=== PATIENT | female | born 1990 ===

== ENCOUNTER 2020-05-06 20:00 | Emergency (ER) | payer MEDICAID ==
--- NOTE | 2020-05-06 20:13 | Emergency Department Report ---
Blank Doc - Documentation Documentation: 29-year-old female that presents with pelvic pain, n/v and headache. HX of ec topic . Denies any vaginal bleeding. This initial assessment/diagnostic orders/clinical plan/treatment(s) is/are subject to change based on patient's health status, clinical progression and re- assessment by fellow clinical providers in the ED. Further treatment and workup at subsequent clinical providers discretion. Patient/guardians urged not to elope from the ED as their condition may be serious if not clinically assessed and managed. Initial orders include: 1- Patient sent to [facility] for further evaluation and treatment 2- labs 3- UA 4- US OB
[2020-05-06] MEDS ORDERED: METOCLOPRAMIDE 10 MG/2 ML INJ IV ONE (20:35)
[2020-05-06] MEDS ORDERED: diphenhydrAMINE 50 MG/ML VIAL IV PRN (20:35)
[2020-05-06] MEDS ORDERED: ACETAMINOPHEN 500 MG TAB PO ONE (20:35)
[2020-05-06 20:41] LABS: Basophils % (Auto) 0.4 % (0.0-1.8); Eosinophils # (Auto) 0.3 K/mm3 (0.0-0.4); Hematocrit 35.6 % (30.3-42.9); Hemoglobin 12.2 gm/dl (10.1-14.3); Lymphocytes # (Auto) 2.1 K/mm3 (1.2-5.4); Lymphocytes % (Auto) 21.5 % (13.4-35.0); Mean Corpuscular HGB Conc 34 % (30-34); Mean Corpuscular Volume 85 fl (79-97); Monocytes # (Auto) 0.5 K/mm3 (0.0-0.8); Monocytes % (Auto) 5.4 % (0.0-7.3); Platelet Count 270 K/mm3 (140-440); Red Blood Count 4.19 M/mm3 (3.65-5.03)
[2020-05-06 20:58] LABS: Bilirubin,Urine NEG (Negative); Blood,Urine NEG (Negative); Color,Urine Colorless (Yellow); Protein,Urine <15 mg/dL mg/dL (Negative); Urobilinogen,Urine < 2.0 mg/dL (<2.0)
[2020-05-06 21:01] LABS: BUN/Creatinine Ratio 18; Blood Urea Nitrogen 9 mg/dL (7-17); Calcium 9.5 mg/dL (8.4-10.2); Hemolysis Index 6
[2020-05-06 21:05] LABS: Alanine Aminotransferase 15 units/L (7-56); Albumin 4.2 g/dL (3.9-5)
[2020-05-06 21:07] LABS: Bilirubin,Direct < 0.2 mg/dL (0-0.2)
--- NOTE | 2020-05-06 21:32 | Emergency Department Report ---
ED Abdominal Pain HPI - General Chief Complaint: Headache Stated Complaint: 8WEEKS PREG,HEADACHE Time Seen by Provider: 05/06/20 20:12 Source: patient Mode of arrival: Ambulatory Limitations: No Limitations - History of Present Illness Initial Comments: Patient is a A0 29-year-old female who is approximately 8 weeks gestation and who presents to the ED with complaint of acute onset suprapubic abdominal pain with nausea and vomiting and persistent headache for the last 2 days. Patient states that she has been taking Tylenol with no relief. Patient states that the nausea and vomiting has worsened in the last 12 hours and she suspected that the nausea and vomiting was from her state. Patient denies dizziness, syncope, fever, chills, cough, sore throat, nasal and sinus congestion, diarrhea, vaginal bleeding, vaginal discharge, dysuria, urinary frequency and urgency, low back pain or chest pain and shortness of breath. MD Complaint: abdominal pain, other (Headache, nausea and vomiting) -: Sudden, days(s) (2) Location: suprapubic Radiation: suprapubic Migration to: no migration Severity: severe Severity scale (0 -10): 8 Quality: aching, sharp Consistency: constant Improves With: nothing Worsens With: nothing Associated Symptoms: denies other symptoms, nausea, vomiting, anorexia. denies: diarrhea, fever, chills, constipation, dysuria, hematemesis, hematochezia, melena, hematuria - Related Data LMP Date: 02/25/20 Previous Rx's Medication Instructions Recorded Last Taken Type Acetaminophen [Tylenol] 500 mg PO Q6HR PRN #30 tablet 05/06/20 Unknown Rx Promethazine [Phenergan] 25 mg PO Q6HR PRN #30 tab 05/06/20 Unknown Rx Promethazine [Phenergan] 25 mg NE Q6HR PRN #15 supp.rect 05/06/20 Unknown Rx ED Review of Systems ROS: Stated complaint: 8WEEKS PREG,HEADACHE Other details as noted in HPI Constitutional: denies: chills, fever Eyes: denies: eye pain, eye discharge, vision change ENT: denies: ear pain, throat pain Respiratory: denies: cough, shortness of breath, wheezing Cardiovascular: denies: chest pain, palpitations Endocrine: no symptoms reported Gastrointestinal: abdominal pain (Suprapubic), nausea, vomiting. denies: diarrhea Genitourinary: denies: urgency, dysuria, discharge Musculoskeletal: denies: back pain, joint swelling, arthralgia Skin: denies: rash, lesions Neurological: headache. denies: weakness, paresthesias Psychiatric: denies: anxiety, depression Hematological/Lymphatic: denies: easy bleeding, easy bruising ED Past Medical Hx - Past Medical History Previous Medical History?: No - Surgical History Past Surgical History?: Yes Additional Surgical History: c-sec X 3 - Social History Smoking Status: Never Smoker Substance Use Type: None - Medications Home Medications: Home Medications Medication Instructions Recorded Confirmed Last Taken Type Acetaminophen [Tylenol] 500 mg PO Q6HR PRN #30 tablet 05/06/20 Unknown Rx Promethazine [Phenergan] 25 mg PO Q6HR PRN #30 tab 05/06/20 Unknown Rx Promethazine [Phenergan] 25 mg NE Q6HR PRN #15 supp.rect 05/06/20 Unknown Rx ED Physical Exam - General Limitations: No Limitations General appearance: alert, in no apparent distress - Head Head exam: Present: atraumatic, normocephalic, normal inspection - Eye Eye exam: Present: normal appearance, PERRL, EOMI Pupils: Present: normal accommodation - ENT ENT exam: Present: normal exam, normal orophraynx, mucous membranes moist, TM's normal bilaterally, normal external ear exam - Neck Neck exam: Present: normal inspection, full ROM. Absent: tenderness - Respiratory Respiratory exam: Present: normal lung sounds bilaterally. Absent: respiratory distress, wheezes, rales, rhonchi, chest wall tenderness, accessory muscle use, decreased breath sounds, prolonged expiratory - Cardiovascular Cardiovascular Exam: Present: regular rate, normal rhythm, normal heart sounds. Absent: systolic murmur, diastolic murmur, rubs, gallop - GI/Abdominal GI/Abdominal exam: Present: soft, tenderness (Palpable moderate suprapubic tenderness), normal bowel sounds. Absent: guarding, rebound, hyperactive bowel sounds, hypoactive bowel sounds - Extremities Exam Extremities exam: Present: normal inspection, full ROM, normal capillary refill - Back Exam Back exam: Present: normal inspection, full ROM. Absent: tenderness, CVA t enderness (R), muscle spasm, paraspinal tenderness, vertebral tenderness - Neurological Exam Neurological exam: Present: alert, oriented X3, CN II-XII intact, normal gait, reflexes normal - Psychiatric Psychiatric exam: Present: normal affect, normal mood - Skin Skin exam: Present: warm, dry, intact, normal color. Absent: rash ED Course Vital Signs 05/06/20 20:04 Temperature 98.3 F Pulse Rate 87 Respiratory 18 Rate Blood Pressure 149/79 O2 Sat by Pulse 100 Oximetry ED Medical Decision Making - Lab Data Result diagrams: 05/06/20 20:15 05/06/20 20:15 - Radiology Data Radiology results: report reviewed, image reviewed Findings [facility] [address] [place] [address] Ultrasound Report Signed Patient: SABAS CANTU MR#: [id number] : 1990 Acct:[id number] Age/Sex: 29 / F ADM Date: 05/06/20 Loc: ED Attending Dr: Ordering Physician: DIOMEDES CLOUD NP Date of Service: 05/06/20 Procedure(s): US OB <= 14 weeks fetus Accession Number(s): [id number] cc: DIOMEDES CLOUD NP ULTRASOUND OBSTETRIC Indication: pelvic pain, prior history of ectopic Findings: There is a single, viable intrauterine . Yolk sac and pole are noted. Need[place]-rump length = 1.61 cm = 8 weeks, 0 day(s). heart rate is 167 beats per minute. The right ovary is surgically absent. The left ovary is normal in appearance measuring 3.3 cm in length. There is minimal free fluid. Impression: Single, viable intrauterine with estimated sonographic age of 8 weeks, 0 day(s). Signer Name: Tre Dumas MD Signed: 05/06/2020 9:25 PM Workstation Name: [id number] Transcribed By: SS Dictated By: Tre Dumas MD Electronically Authenticated By: Tre Dumas MD Signed Date/Time: 05/06/202124 DD/ 23 TD/TT: - Medical Decision Making This is a A0 29-year-old female who is approximately 8 weeks gestation and who presents to the ED with complaint of acute onset suprapubic abdominal pain with nausea and vomiting and persistent headache for the last 2 days. Patient states that she has been taking Tylenol with no relief. Patient states that the nausea and vomiting has worsened in the last 12 hours and she suspected that the nausea and vomiting was from her state. In the ED, patient is alert and oriented x3 and is not in distress with normal vital signs. Patient was treated for pain in the ED also received antiemetics Reglan and Benadryl IV. Lab test results were reviewed and showed hCG quant of [id number] and hyperglycemia 138 mg/dL. The rest of the lab test results are nonactionable including urinalysis. Transvaginal ultrasound showed a single, viable intrauterine with estimated sonographic age of 8 weeks, 0 day(s), and with a heart rate of 167 bpm. On reevaluation, patient's headache has resolved and patient has not had any nausea or vomiting as these symptoms have also resolved with medications. Patient will discharge home on medications and advised to maintain a complete pelvic rest with no strenuous or physical activities, and to follow-up with the [facility] physician in 2 to 3 days for reevaluation or return to the ED immediately if symptoms get worse. - Differential Diagnosis Ectopic ; Ovarian cyst; UTI; Dehydration; Critical care attestation.: If time is entered above; I have spent that time in minutes in the direct care of this critically ill patient, excluding procedure time. ED Disposition Clinical Impression: Abdominal pain during in first trimester, Nausea and vomiting in prior to 22 weeks gestation Tension-type headache Qualifiers: Headache chronicity pattern: acute headache Intractability: not intractable Qualified Code(s): G44.209 - Tension-type headache, unspecified, not intractable Disposition: DC-01 TO HOME OR SELFCARE Is pt being admited?: No Does the pt Need Aspirin: No Condition: Stable Instructions: Abdominal Pain in (ED), Acute Headache (ED), Acute Nausea and Vomiting (ED) Additional Instructions: Maintain a complete pelvic rest with no physical or strenuous or sexual activities. Follow-up with your [facility] physician in 2 to 3 days for reevaluation. Take medication as needed for pain and also for nausea and vomiting, drink plenty of fluids and return to the ED immediately if symptoms get worse. Prescriptions: Acetaminophen [Tylenol] 500 mg PO Q6HR PRN #30 tablet PRN Reason: Pain , Severe (7-10) Promethazine [Phenergan] 25 mg PO Q6HR PRN #30 tab PRN Reason: Nausea Promethazine [Phenergan] 25 mg NE Q6HR PRN #15 supp.rect PRN Reason: Nausea Referrals: PRIMARY CARE, [Primary Care Provider] - 3-5 Days Time of Disposition: 21:35 Print Language: SAMI
[2020-05-06 22:32] VITALS: BP 130/78
== END 2020-05-06 22:30 | disposition home or self-care (01) ==
LOC: ED 20:00
DX: O21.8 Other vomiting complicating pregnancy (principal); O26.891 Other specified pregnancy related conditions, first trimester; R10.33 Periumbilical pain; G44.209 Tension-type headache, unspecified, not intractable; Z79.899 Other long term (current) drug therapy; Z98.890 Other specified postprocedural states; Z3A.08 8 weeks gestation of pregnancy
CPT/HCPCS: 36415; 76801; 80048; 80076; 81001; 84702; 85025; 96374; 96375; 99284; J1200; J2765